=== PATIENT | male | born 1995 | race Caucasian/White ===

== ENCOUNTER 2018-02-21 08:03 | Emergency (ER) | payer OTHER ==
[2018-02-21 08:41] LABS: BASO % 0.4 % (0.0-1.0); EOS % 0.8 % (0.0-3.0); HEMATOCRIT 42.5 % (42.0-52.0); HEMOGLOBIN 15.2 g/dl (13.5-17.5); LYMPH # 0.9 10^3/uL (1.5-6.5); LYMPH % 18.9 % (24.0-44.0); MEAN CORPUSCULAR HEMOGLOBIN 29.3 pg (27.0-33.0); MEAN CORPUSCULAR HGB CONC 35.8 g/dl (32.0-36.5); MEAN CORPUSCULAR VOLUME 81.9 fl (80.0-96.0); MONO # 0.5 10^3/uL (0.0-0.8); MONO % 10.9 % (0.0-5.0); NEUTROPHILS # 3.4 10^3/uL (1.8-7.7); RED BLOOD COUNT 5.19 10^6/uL (4.30-6.10); RED CELL DISTRIBUTION WIDTH 11.7 % (11.5-14.5); WHITE BLOOD COUNT 4.9 10^3/uL (4.0-10.0)
[2018-02-21 09:03] LABS: IMMATURE PLATELET FRACTION % 11.8 % (0.0-10.9); PLATELET COUNT, AUTOMATED 91 10^3/uL (150-450); PLATELET F 91
[2018-02-21 09:06] LABS: ALBUMIN 4.3 GM/DL (3.2-5.2); ALBUMIN/GLOBULIN RATIO 1.26 (1.00-1.93); ALKALINE PHOSPHATASE 56 U/L (45-117); ALT/SGPT 15 U/L (12-78); AMYLASE 25 U/L (25-115); ANION GAP 8 MEQ/L (8-16); AST/SGOT 18 U/L (7-37); BILIRUBIN,TOTAL 0.9 MG/DL (0.2-1.0); BLOOD UREA NITROGEN 16 MG/DL (7-18); CALCIUM LEVEL 8.8 MG/DL (8.5-10.1); CARBON DIOXIDE LEVEL 26 MEQ/L (21-32); CHLORIDE LEVEL 107 MEQ/L (98-107); CREATININE FOR GFR 0.97 MG/DL (0.70-1.30); GLOMERULAR FILTRATION RATE > 60.0 (>60); GLUCOSE, FASTING 89 MG/DL (70-100); LIPASE 59 U/L (73-393); POTASSIUM SERUM 3.9 MEQ/L (3.5-5.1); SODIUM LEVEL 141 MEQ/L (136-145); TOTAL PROTEIN 7.7 GM/DL (6.4-8.2)
== END 2018-02-21 10:07 | disposition home or self-care (01) ==
LOC: M ED 08:03
DX: R10.11 Right upper quadrant pain (principal); D69.6 Thrombocytopenia, unspecified
CPT/HCPCS: 76705

== ENCOUNTER 2019-07-19 08:06 | Emergency (ER) | payer OTHER ==
[~2019-07-19] VITALS: Ht 182.9 cm; Wt 87.0 kg
[~2019-07-19 08:06] MED LIST: BENT10CA PO; PROT1TAB2 PO
[2019-07-19 08:07] VITALS: BP 163/93
[2019-07-19] MEDS ORDERED: LIDOCAINE 2% MDV 20 ML VIAL SC ONE (09:15)
--- NOTE | 2019-07-19 09:16 | REP ---
Left small finger series: Four views. History: Trauma. Findings: There is soft-tissue swelling and irregularity of the distal phalanx of the small finger with 01/23 bubbles of gas. No opaque foreign body is seen. No fractures noted. Impression: Findings consistent with soft tissue injury/laceration distal phalanx left small finger. No fracture or opaque foreign body seen. Electronically Signed by Zac Angel MD 07/19/2019 09:08 A
[2019-07-19] MEDS ORDERED: BACT800T5 PO (10:02)
== END 2019-07-19 10:20 | disposition home or self-care (01) ==
LOC: M ED 08:06
DX: S61.216A Laceration without foreign body of right little finger without damage to nail, initial encounter (principal); W23.0XXA Caught, crushed, jammed, or pinched between moving objects, initial encounter; Y92.481 Parking lot as the place of occurrence of the external cause; Y92.89 Other specified places as the place of occurrence of the external cause; Y99.0 Civilian activity done for income or pay